=== PATIENT | female | born 1995 | race Two or more races ===

== ENCOUNTER → 2023-08-02 13:18 | Emergency (ER) | payer MEDICAID, OTHER ==
[~2023-08-02] VITALS: Ht 154.9 cm; Wt 72.7 kg
[2023-08-02 13:18] VITALS: BP 121/80
[2023-08-02 15:08] LABS: Urine Bacteria None Seen /hpf (None Seen)
[2023-08-02 15:27] LABS: Urine Amorphous Crystal FEW /hpf (None Seen); Urine Blood 2+ /uL (Negative); Urine Clarity Turbid (Clear); Urine Color Yellow (Yellow); Urine Mucus FEW (None Seen); Urine Protein, UAD 1+ (Negative); Urine Specific Gravity 1.035 (1.001-1.035); Urine Urobilinogen Normal (Negative); Urine WBC 2 /hpf (0 - 5); Urine pH 5.5 (5.0-9.0)
[2023-08-02 16:35] LABS: Basophils # (auto) 0 10 ^3/uL (0-0.2); Basophils % (auto) 0.3 % (0.0-2.0); Eosinophils # (auto) 0 10 ^3/uL (0-0.8); Eosinophils % (auto) 0.7 % (0.0-7.0); Hematocrit 44.3 % (36.0-46.0); Hemoglobin 14.6 g/dL (12.2-16.2); Lymphocytes # (auto) 0.9 10 ^3/uL (0.4-5.4); Lymphocytes % (auto) 14.9 % (10.0-50.0); Mean Corpuscular Hemoglobin 28.3 pg (28.0-32.0); Mean Corpuscular Hgb Conc. 32.9 g/dL (32.0-36.0); Mean Corpuscular Volume 86.1 fL (80.0-100.0); Monocytes # (auto) 0.5 10 ^3/uL (0-1.3); Monocytes % (auto) 7.7 % (0.0-12.0); Neutrophils # (auto) 4.9 10 ^3/uL (1.6-8.6); Neutrophils % (auto) 76.4 % (37.0-80.0); Nucleated Red Blood Cells % 0.1 %; Red Blood Cells 5.15 10^6/uL (4.0-5.20); Red Cell Distribution Width 14.3 % (11.8-14.3); White Blood Cell 6.4 10^3/uL (4.4-10.8)
[2023-08-02] MEDS: SODIUM CHLORIDE 0.9% 1,000 ML IV ONE (16:36)
[2023-08-02] MEDS: cefTRIAXone 1GM/50ML D5W 50 ML IV ONE (16:37)
[2023-08-02 16:48] LABS: Chloride 108 mmol/L (98-107); Potassium 4.2 mmol/L (3.5-5.1); Sodium 139 mmol/L (136-145)
[2023-08-02 16:49] LABS: Anion Gap 6 (5-15); Carbon Dioxide 25 mmol/L (20-30)
[2023-08-02 16:50] LABS: Calcium 9.9 mg/dL (8.5-10.1)
[2023-08-02 16:54] LABS: Glucose 90 mg/dL (74-106)
[2023-08-02 16:55] LABS: Blood Urea Nitrogen 6 mg/dL (9-23)
[2023-08-02 17:02] VITALS: PULSE 71; RESP 19; O2SAT 96
== END | disposition left against medical advice (07) ==
LOC: ER 13:18
DX: K52.9 Noninfective gastroenteritis and colitis, unspecified (principal)
CPT/HCPCS: 36415; 80048; 81001; 85025; 96365; 99284; J0696; J7030